=== PATIENT | female | born 1965 | race Caucasian/White ===

== ENCOUNTER → 2021-06-01 | Outpatient (CLI) | payer OTHER ==
[~2021-06-01] MED LIST: ALLEGRA ALLERG180 MG PO; AUGMENTIN 875-1 EACH PO; LORTAB 5-325 M1 EACH PO; MOBIC15 MG PO; NASONEX SPRAY 117 GM; NEURONTIN 300300 MG PO; NORCO 5-325 TA1 EACH PO; OMEPRAZOLE40 MG PO; PROGESTERONE100 MG PO; VITAMIN D350000 UNIT PO; WELLBUTRIN SR150 MG PO; ZOFRAN ODT8 MG PO; ZYRTEC10 MG PO
== END ==
LOC: KOH-I 15:22
DX: M79.672 Pain in left foot (principal); M79.671 Pain in right foot
CPT/HCPCS: 73630